=== PATIENT | male | born 1965 | race Caucasian/White ===

== ENCOUNTER 2019-04-30 15:25 | Emergency (ER) | payer OTHER, SELFPAY ==
[2019-04-30 15:33] VITALS: BP 188/123; PULSE 101; RESP 18; O2SAT 98
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
[2019-04-30] MEDS: oxyCODONE 5 mg/Acetaminophen 325 mg TAB 1 TAB PO (16:20)
[2019-04-30] MEDS: Tetanus & Diphtheria Tox,ADULT 0.5 ML VIAL IM (16:21)
[2019-04-30 16:55] VITALS: PULSE 102; RESP 18; O2SAT 99
== END 2019-04-30 17:00 | disposition home or self-care (01) ==
PROVIDERS: Emergency Provider Registered Nurse Emergency
DX: S09.90XA Unspecified injury of head, initial encounter (principal); S01.511A Laceration without foreign body of lip, initial encounter; S20.219A Contusion of unspecified front wall of thorax, initial encounter; V86.52XA Driver of snowmobile injured in nontraffic accident, initial encounter
CPT/HCPCS: 12051; 90471; 99284; 99282